=== PATIENT | female | born 1970 | race Two or more races ===

== ENCOUNTER 2019-04-05 04:44 | Emergency (ER) | payer OTHER ==
[~2019-04-05] VITALS: Ht 160 cm; Wt 98.4 kg
[2019-04-05 04:50] VITALS: BP 144/94
[2019-04-05 05:37] LABS: INFLUENZA A PATIENT NEGATIVE (NEGATIVE); INFLUENZA B PATIENT NEGATIVE (NEGATIVE)
[2019-04-05] MEDS ORDERED: GUAI-305 PO (05:53)
[2019-04-05] MEDS ORDERED: AZIT250T PO (05:53)
[2019-04-05] MEDS ORDERED: HYDR-2761 PO (05:53)
--- NOTE | 2019-04-05 06:00 | PHYS DOC ---
Past Medical History Past Medical History: No Pertinent History Past Surgical History: Alcohol Use: None Drug Use: None Adult General Chief Complaint Chief Complaint: FLU SYMPTOM HPI HPI Patient is a 48 year old female presents with nasal congestion rhinorrhea, sore throat and bilateral ear pain. Symptom onset was 3 days ago. Cough is coarse, nonproductive. Patient denies fever chills, sweats. Reports generalized malaise and myalgias. No medications or therapy sticking prior to ED arrival. Patient is a nonsmoker. No history of asthma. [] Review of Systems Review of Systems ROS as per HPI All other systems were reviewed and found to be within normal limits, except as documented in this note. Allergies Allergies Allergies Coded Allergies Type Severity Reaction Last Updated Verified No Known Drug Allergies 04/05/19 No Physical Exam Physical Exam Constitutional: Well developed, well nourished, no acute distress, non-toxic appearance. [] HENT: Normocephalic, atraumatic, bilateral external ears normal, TMs clear and bulging oropharynx moist, no oral exudates, nose, rhinorhea. [] Eyes: PERRLA, EOMI, conjunctiva normal. [] Neck: Normal range of motion, no tenderness. [] Cardiovascular:Heart rate regular rhythm, no murmur [] Lungs & Thorax: Bilateral breath sounds clear to auscultation [] Abdomen: Bowel sounds normal, soft, no tenderness. [] Skin: Warm, dry, no rash. [] Back: No tenderness. [] Extremities: No tenderness, no edema. [] Neurologic: Alert and oriented X 3, normal motor function, normal sensory function, no focal deficits noted. [] Psychologic: Affect normal, judgement normal, mood normal. [] Current Patient Data Vital Signs Vital Signs Date Time Temp Pulse Resp B/P (MAP) Pulse Ox O2 Delivery O2 Flow Rate FiO2 04/05/19 04:50 98.3 73 18 144/94 (111) 98 Room Air 98.3 Lab Values Laboratory Tests Test 04/05/19 05:00 Influenza Type A Antigen Negative (NEGATIVE) Influenza Type B Antigen Negative (NEGATIVE) EKG EKG [] Radiology/Procedures Radiology/Procedures [] Course & Med Decision Making Course & Med Decision Making Pertinent Labs and Imaging studies reviewed. (See chart for details) [Influenza like illness without respiratory compromise.] Dragon Disclaimer Dragon Disclaimer This electronic medical record was generated, in whole or in part, using a voice recognition dictation system. Departure Departure Impression: Primary Impression: Flu-like symptoms Disposition: 01 HOME, SELF-CARE Condition: GOOD Patient Instructions: Influenza, Adult, [id number] Additional Instructions: Please take ibuprofen for pain and newly prescribed medications as directed. Follow-up with your PCP in 3-5 days for reevaluation as needed. Scripts Hydrocodone Bit/Acetaminophen (HYDROCODONE-APAP 5-325 ) 1 Tab Tablet 1 TAB PO PRN Q6HRS PRN for PAIN, #10 TAB 0 Refills Prov: KHALIF JACKSON DO 04/05/19 Azithromycin (ZITHROMAX) 250 Mg Tablet 1 PKG PO UD, #6 TAB Prov: KHALIF JACKSON DO 04/05/19 Guaifenesin/Pseudoephedrne HCl (Guaifenesin-Pse ER 600-60 mg) 1 Each Tab.er.12h 1 EACH PO BID for 7 Days, #14 TAB.SR Prov: KHALIF JACKSON DO 04/05/19 KHALIF JACKSON DO Apr 05, 2019 06:00
== END 2019-04-05 06:05 | disposition home or self-care (01) ==
LOC: ER 04:44
DX: H92.03 Otalgia, bilateral (principal); R09.81 Nasal congestion; R05 Cough; R53.81 Other malaise; J02.9 Acute pharyngitis, unspecified; M79.10 Myalgia, unspecified site; J34.89 Other specified disorders of nose and nasal sinuses
CPT/HCPCS: 87804; 99284